=== PATIENT | male | born 2000 | race Caucasian/White ===

== ENCOUNTER 2018-11-16 01:19 | Emergency (ER) | payer OTHER ==
[2018-11-16] MEDS ORDERED: METOCLOPRAMIDE 5 MG/ML 2 ML VIAL IVP STA (01:55)
[2018-11-16] MEDS ORDERED: GLUCAGON 1 MG/ML VIAL IVP STA (01:55)
--- NOTE | 2018-11-16 01:57 | XR ---
EXAM: XR Chest, 2 Views CLINICAL HISTORY: ITS.REASON XR Reason: Pain TECHNIQUE: Frontal and lateral views of the chest. COMPARISON: No relevant prior studies available. FINDINGS: Lungs: No consolidation or mass. Pleural space: No effusion. Heart: No cardiomegaly. Mediastinum: Unremarkable. Bones/joints: No acute findings. IMPRESSION: No acute cardiopulmonary process.
[2018-11-16 02:51] VITALS: RESP 16
[2018-11-16] MEDS ORDERED: ONDANSETRON 4 MG/2 ML VIAL IVP STA (03:01)
[2018-11-16] MEDS ORDERED: MAG HYDROX/AL HYDROX/SIMETH 30 ML, HYOSCYAMINE ELIXIR 10 ML, CIMETIDINE HCL 300 MG, LID... PO STA ×4 (04:09)
--- NOTE | 2018-11-16 04:30 | ED ---
Recheck HPI - General Source: patient Mode of arrival: ambulatory Limitations: no limitations <Selina Castellano - Last Filed: 11/16/18 04:56> <Renata Guadalupe - Last Filed: 11/17/18 07:57> - General Chief Complaint: Recheck/Abnormal Lab/Rx Stated Complaint: abd pain Time Seen by Provider: 11/16/18 01:39 - History of Present Illness Initial Comments: 17-year-old male patient presents to the emergency department today for evaluation of possible obstruction to esophagus. Patient states he is eating pizza around 1 PM this afternoon. Patient states it felt like a piece of the pizza at [employer]. States that since then he has been unable to swallow her keep down fluids. States that he has the pain to his low substernal chest and feels like something is stuck. Patient states he has had this in the past but is usually able to get the feeling to pass small drinking Coke. The method did not work today. He denies any fevers or chills. Denies any difficulty breathing. Patient states that he did have some streaking with blood with a couple episodes of the vomiting. Patient denies any recent rash, diarrhea, constipation, back pain, numbness, tingling, dizziness, weakness, hematuria, dysuria, urinary urgency, urinary frequency, headache, visual changes, or any other complaints. (Selina Castellano) - Related Data Previous Rx's Medication Instructions Recorded Sucralfate [Carafate] 1 gm PO ACHS #400 ml 11/16/18 Allergies Allergy/AdvReac Type Severity Reaction Status Date / Time No Known Allergies Allergy Verified 11/16/18 01:30 Review of Systems ROS Other: All systems not noted in ROS Statement are negative. <Selina Castellano - Last Filed: 11/16/18 04:56> ROS Other: All systems not noted in ROS Statement are negative. <Renata Guadalupe - Last Filed: 11/17/18 07:57> ROS Statement: Those systems with pertinent positive or pertinent negative responses have been documented in the HPI. Past Medical History Past Medical History: No Reported History History of Any Multi-Drug Resistant Organisms: None Reported Past Surgical History: No Surgical Hx Reported Past Psychological History: No Psychological Hx Reported Smoking Status: Never smoker Past Alcohol Use History: None Reported Past Drug Use History: None Reported <Selina Castellano - Last Filed: 11/16/18 04:56> General Exam Limitations: no limitations General appearance: alert, in no apparent distress, other (Physical well- developed, well-nourished adult male patient in no acute distress. Vital signs upon presentation are temperature 98.2F, pulse 86, respirations 18, blood pressure 129/78, pulse ox 100% on room air.) Eye exam: Present: normal appearance, PERRL, EOMI. Absent: scleral icterus, conjunctival injection, periorbital swelling ENT exam: Present: normal exam, normal oropharynx, mucous membranes moist Respiratory exam: Present: normal lung sounds bilaterally. Absent: respiratory distress, wheezes, rales, rhonchi, stridor Cardiovascular Exam: Present: regular rate, normal rhythm, normal heart sounds. Absent: systolic murmur, diastolic murmur, rubs, gallop, clicks GI/Abdominal exam: Present: soft, normal bowel sounds. Absent: distended, tenderness, guarding, rebound, rigid Neurological exam: Present: alert, oriented X3, CN II-XII intact Psychiatric exam: Present: normal affect, normal mood Skin exam: Present: warm, dry, intact, normal color. Absent: rash <Selina Castellano M - Last Filed: 11/16/18 04:56> Vital Signs 11/16/18 11/16/18 11/16/18 01:27 02:48 03:08 Temperature 98.2 F Pulse Rate 86 64 60 Respiratory 18 16 16 Rate Blood Pressure 129/78 130/68 136/75 O2 Sat by Pulse 100 100 100 Oximetry 11/16/18 04:50 Temperature 98 F Pulse Rate 62 Respiratory 16 Rate Blood Pressure 124/72 O2 Sat by Pulse 98 Oximetry Medical Decision Making - Radiology Data Radiology results: report reviewed, image reviewed <Selina Castellano - Last Filed: 11/16/18 04:56> <Renata Guadalupe - Last Filed: 11/17/18 07:57> - Medical Decision Making 17-year-old male patient presented to the emergency department today for evaluation of esophageal food obstruction. Patient initially was unable to swallow any food or fluids upon arrival. We did administer IV glucagon and Reglan after performing chest x-ray. Patient was able to swallow water. He did have some episodes of vomiting shortly after. We did administer Zofran. Patient was given a by mouth challenge with water and was able to swallowing keep down at least 8 ounces. Patient does report increased pain to his chest with swallowing the water. Reviewed x-ray showed no evidence of perforated esophagus. Patient was given a GI cocktail here in the department. Is felt that he has irritated the esophagus with the food bolus. He will be given a prescription for Carafate to use prior to eating meals. Is instructed to follow -up with the GI specialist for further evaluation. Return parameters were discussed in detail. Both patient and parent verbalizes understanding and agree with this plan. (Selina Castellano) I was available for consultation in the emergency department. The history and physical exam were done by the midlevel provider. I was consulted for this patient's care. I reviewed the case with the midlevel provider and based on their presentation of the patient, I agree with the assessment, medical decision making and plan of care as documented. (Renata Guadalupe) - Radiology Data 2 views of the chest are obtained. Report was reviewed in its entirety. Impression by Dr. Hyatt shows no acute cardiopulmonary process. (Selina Castellano) Disposition Is patient prescribed a controlled substance at d/c from ED?: No Time of Disposition: 04:30 <Selina Castellano - Last Filed: 11/16/18 04:56> <Rentaa Guadalupe - Last Filed: 11/17/18 07:57> Clinical Impression: Esophageal obstruction due to food impaction, Esophagitis Disposition: HOME SELF-CARE Condition: Good Instructions (If sedation given, give patient instructions): Diet for Stomach Ulcers and Gastritis (ED), Esophagitis (ED) Additional Instructions: Take medication as directed. Follow-up with her GI specialist for recheck as soon as possible. Return to the emergency department immediately for any new, worsening, or concerning symptoms. Prescriptions: Sucralfate [Carafate] 1 gm PO ACHS #400 ml Referrals: Jos Payne MD [STAFF PHYSICIAN] - 1-2 days
[2018-11-16 04:51] VITALS: BP 124/72; PULSE 62; TEMP 98
== END 2018-11-16 04:50 | disposition home or self-care (01) ==
LOC: EC 01:19
DX: K22.2 Esophageal obstruction (principal); K20.9 Esophagitis, unspecified
CPT/HCPCS: 71046; 96374; 96375; 99283